=== PATIENT | male | born 1960 | race Hispanic/Latino ===

== ENCOUNTER 2018-06-14 16:43 | Emergency (ER) | payer SELFPAY ==
[~2018-06-14] VITALS: Ht 162.6 cm; Wt 68.0 kg
--- NOTE | 2018-06-14 17:27 | NUR ---
PT MEDICATED FOR PAIN ORDERED. PT TO BE DISCHARGED HOME AFTER SHOT TIME AND IS AWARE OF THIS.
[2018-06-14] MEDS ORDERED: KETOROLAC TROMETHAMINE 60 MG/2 ML VIAL IM ONE (17:30)
[2018-06-14] MEDS ORDERED: DIAZEPAM 5 MG TAB PO ONE (17:30)
[2018-06-14 17:53] VITALS: BP 148/97
[2018-06-14] MEDS ORDERED: HYDROMORPHONE 2MG/ML 2 MG/ML ML IM ONE (19:00)
== END 2018-06-14 17:53 | disposition home or self-care (01) ==
LOC: ER 16:43
DX: M54.2 Cervicalgia (principal); S16.1XXA Strain of muscle, fascia and tendon at neck level, initial encounter; V43.52XA Car driver injured in collision with other type car in traffic accident, initial encounter; Y92.488 Other paved roadways as the place of occurrence of the external cause
CPT/HCPCS: 99283; J1170; J1885